=== PATIENT | male | born 1965 | race Caucasian/White ===

== ENCOUNTER → 2017-07-08 | Outpatient (CLI) | payer OTHER ==
--- NOTE | 2017-07-08 10:50 | MR ---
EXAMINATION TYPE: MR shoulder LT wo con DATE OF EXAM: 07/08/2017 COMPARISON: Plain film 06/23/2017 HISTORY: Left shoulder pain TECHNIQUE: Multiplanar, multisequence imaging of the left shoulder is performed without contrast. FINDINGS: Rotator Cuff: Abnormal increased signal is present at the anterior aspect of the rotator cuff inserti on, the tendon is attenuated, fluid is present at the level of the insertion of the rotator cuff on t he humeral head Acromioclavicular Joint: Arthropathy changes present, there is mass effect on the musculotendinous ju nction of supraspinatus, fluid signal present in the subacromial subdeltoid bursa Glenohumeral Joint: Intact Labrum: The labrum appears grossly intact given limitation of non-arthrogram study, suspect there may be a sublabral foramen. Biceps Tendon: The long head of biceps is in normal location within bicipital groove. Some fluid sign al is present along the long head of biceps tendon. Bone marrow signal: Pseudocysts are present within the greater tuberosity. Other: There is a distal acromial spur. IMPRESSION: Findings compatible with partial-thickness tear of the rotator cuff, there is marked attenuation of t he tendon, partial full-thickness tear may be present. Correlate for impingement.
== END | disposition home or self-care (01) ==
LOC: RADMRIMAIN 09:09
PROVIDERS: ATTEND Orthopaedic Surgery
DX: M25.512 Pain in left shoulder (principal)

== ENCOUNTER → 2018-01-30 | Outpatient (CLI) | payer BC ==
[2018-01-30 10:58] LABS: Basophils # (A) 0.1 k/uL (0-0.2); Basophils % (A) 1 %; Eosinophils # (A) 0.2 k/uL (0-0.7); Eosinophils % (A) 2 %; HCT 48.2 % (39.0-53.0); HGB 16.9 gm/dL (13.0-17.5); Lymphocytes # (A) 2.7 k/uL (1.0-4.8); Lymphocytes % (A) 31 %; MCH 29.2 pg (25.0-35.0); MCV 83.5 fL (80.0-100.0); Monocytes # (A) 0.4 k/uL (0-1.0); Monocytes % (A) 5 %; Neutrophils # (A) 5.2 k/uL (1.3-7.7); Neutrophils % (A) 59 %; Platelet Count 307 k/uL (150-450); RBC 5.77 m/uL (4.30-5.90); RDW 13.1 % (11.5-15.5); WBC 8.7 k/uL (3.8-10.6)
[2018-01-30 11:07] LABS: Potassium 4.7 mmol/L (3.5-5.1)
== END ==
LOC: LABPAT 10:17
PROVIDERS: ATTEND Orthopaedic Surgery
DX: Z01.812 Encounter for preprocedural laboratory examination (principal); M75.42 Impingement syndrome of left shoulder
CPT/HCPCS: 36415; 80051; 85025; 93005

== ENCOUNTER 2018-02-17 07:57 | Day surgery (SDC) | payer BC ==
[2018-02-09 14:04] VITALS: BMI 27.8
--- NOTE | 2018-02-16 10:04 | HP ---
HISTORY AND PHYSICAL DATE OF SERVICE: 02/17/2018 Jose Antonio Rangel is a 52-year-old patient seen with progressive left shoulder pain. We discussed treatment options. He elected to proceed with arthroscopy. Consent regarding the procedure was obtained. PAST MEDICAL HISTORY: Hypercholesterolemia and asthma. PAST SURGICAL HISTORY: Right wrist surgery. DAILY MEDICATIONS: 1. Simvastatin. 2. Ventolin inhaler. ALLERGIES: SULFA. SOCIAL HISTORY: Patient denies current tobacco use. PHYSICAL EVALUATION OF LEFT SHOULDER: Flexion 140 degrees, abduction 90 degrees, external rotation is 45 degrees with weakness and pain. Tenderness along the anterior lateral acromion rotator cuff insertion site. Impingement sign positive at 90 degrees. Drop-arm sign is positive. Distal neurovascular exam is intact. LEFT SHOULDER RADIOGRAPHS: Revealed a type 2 anterior acromion, acromioclavicular joint osteoarthritis and cystic changes of the tuberosity. An MRI of left shoulder revealed rotator cuff tendon tear. IMPRESSION: 1. Left shoulder impingement with rotator cuff tear. 2. Left shoulder acromioclavicular joint osteoarthritis. PLAN: Left shoulder arthroscopy with subacromial decompression and probable arthroscopic rotator cuff repair, possible Reyes procedure and debridement. MMODL / IJN: [id number] /
[~2018-02-17 07:57] MED LIST: HYDROmorphone 0.5 MG/0.5 ML SYRINGE IVP PRN; LACTATED RINGERS 1,000 ML IV SCH; MIDAZOLAM 2 MG/2 ML VIAL IV PRN; MORPHINE SULFATE 2 MG/ML SYRINGE IV PRN; ceFAZolin IN SWFI 2 GM/20 ML SYRINGE IVP ONE
[2018-02-17] MEDS ORDERED: fentaNYL (PF) 50 MCG/ML 2 ML AMP ONE ×2 (08:40→10:02)
[2018-02-17] MEDS ORDERED: ePHEDrine SULFATE/0.9% NACL/PF 50 MG/5 ML SYRINGE IV ONE (10:02)
[2018-02-17] MEDS ORDERED: LIDOCAINE 2%-EPI 1:100,000 20 ML VIAL ONE (10:02)
[2018-02-17] MEDS ORDERED: ROPIVACAINE 5 MG/ML 30 ML VIAL ONE (10:02)
[2018-02-17] MEDS ORDERED: SUCCINYLCHOLINE CHLORIDE 100 MG/5 ML SYR IV ONE (10:02)
[2018-02-17] MEDS ORDERED: PROPOFOL 10 MG/ML 20 ML VIAL IV ONE (10:02)
[2018-02-17] MEDS ORDERED: MIDAZOLAM 2 MG/2 ML VIAL ONE (10:02)
[2018-02-17] MEDS ORDERED: ONDANSETRON 4 MG/2 ML VIAL ONE (10:02)
[2018-02-17] MEDS ORDERED: LIDOCAINE 1% INJ 10MG/ML (20 ML MDV) ONE (10:02)
--- NOTE | 2018-02-17 10:23 | P.ONQ ---
Anesthesiology Proc Note - PNB - Peripheral Nerve Block Performed Left Interscalene Single Time Out Performed: Yes Procedure Start Time: 08:55 Indication: Acute Post-Operative Pain, Analgesia Specifically requested for management of pain by DrDimple: Cory Espinosa Sedation Type: Sedate with meaningful contact maintained Preparation: Sterile Prep Position: Supine Catheter: None Needle Types: Other (see comment) (Pajunk) Needle Size: 50mm (2") Needle Gauge: 21 Technique: Ultrasound Injectate: 0.5% Ropivacaine (see comment for volume) (25 cc) Blood Aspirated: No Pain Paresthesia on Injection Noted: No Resistance on Injection: Normal Events: Uneventful and Well Tolerated (Sterile prep gloves and mask. Mosquito bite in general area mandated a more cephalad - caudad approach.)
[2018-02-17] MEDS ORDERED: SODIUM CHLORIDE 0.9% 1,000 ML IV ONE ×3 (11:57)
--- NOTE | 2018-02-17 11:59 | P.OP ---
Date of Procedure: 02/17/18 Preoperative Diagnosis: Left shoulder impingement Postoperative Diagnosis: 1. Left shoulder rotator cuff tear 2. Left shoulder impingement 3. Left shoulder acromioclavicular joint osteoarthritis 4. Left shoulder partial long head biceps tendon tear 5. Left shoulder superficial labral tear Procedure(s) Performed: 1. Left shoulder arthroscopic rotator cuff repair 2. Left shoulder arthroscopic subacromial decompression 3. Left shoulder arthroscopic Reyes procedure 4. Left shoulder arthroscopic biceps tenotomy 5. Left shoulder arthroscopic debridement labral tear Implants: 3-Arthrex swivel lock anchors Anesthesia: GETA, regional (Interscalene block) Surgeon: Cory Espinosa Cost Accounting Manager #1: Franklin Hernandez Estimated Blood Loss (ml): 12 Pathology: none sent Condition: stable Disposition: PACU Indications for Procedure: 52-year-old patient seen with progressive left shoulder pain. After treatment options were discussed, he elected to proceed with arthroscopy. Operative Findings: see description of procedure Description of Procedure: Patient underwent a shoulder block by department of anesthesia. The patient was then taken to the operative suite. The patient underwent a general anesthetic by the department of anesthesia. The patient was placed into a lateral position and secured. There was appropriate padding of the bony prominence. Left shoulder was then prepped and draped in normal sterile orthopedic fashion. We placed the extremity in 10 pounds of longitudinal traction. A posterior incision was now made for a posterior working portal site. The trocar and cannula were inserted into the glenohumeral joint. Arthroscopy was initiated. Spinal needle was now inserted anteriorly, to ascertain the anterior working portal site. An incision was now made in that area, a trocar was inserted followed by a probe. There was superficial tearing noted of the anterior and superior labrum. There was partial tearing and hyperemia long head biceps tendon. The inferior posterior labrum were intact. There were mild grade 1 chondromalacia changes of the humeral head centrally. No loose bodies. I performed an arthroscopic biceps tenotomy. I debrided the labral tears down to stable tissue. The residual labrum was probed and found to be stable. Instruments now removed from glenohumeral joint. Utilizing the posterior working portal site, the trocar and cannula were inserted into the subacromial space. Arthroscopy initiated. I made an incision 2 fingerbreadths lateral to the acromion. I introduced my trocar followed by my ArthroCare ablator. I now began ablating thick subacromial bursal tissue, which exposed the undersurface of the anterior acromion. This was diminished subacromial space. There was a very prominent anterior acromion. A motorized bur was introduced and a subacromial decompression was performed. I also excised some osteophytes off the inferior aspect of the distal clavicle. The AC joint was visualized and noted to be fairly arthritic. Our motorized bur was introduced in the anterior portal site and a Reyes procedure was performed without difficulty, decompressing the AC joint nicely. I turned my attention to the rotator cuff. There was an obvious rotator cuff tear along the anterior distal supraspinatus tear. I debrided the margins getting down to stable tendon tissue. The tear measured approximately 2 cm. I abraded the footprint with a motorized bur. I created an career based intervention coordinator portal site off the lateral acromion. I now introduced 1 the medial row anchor with 3 sutures. I passed all 6 limbs of suture through good bites of rotator cuff tendon. We did note a potential dogears posteriorly introduced 1 suture loop. A second suture loop was added to correct a dogear more anteriorly. I now crisscrossed our sutures and introduced 2 lateral anchors which compressed the tendon on the footprint very nicely. The residual suture limbs were clipped. The repair was stable. I injected 1 mL of Renue intra-articular. Instruments now removed from the portal sites. All portal sites were approximated with nylon suture. Sterile dressings were applied followed by a shoulder immobilizer. 3 Arthrex SwiveLock anchors were utilized as implants. Jeremy STEPHENSON assisted with the procedure. The patient was awakened, transferred to a bed, and taken to recovery in stable condition.
[2018-02-17 12:02] VITALS: TEMP 98
[2018-02-17 14:20] VITALS: BP 132/84; PULSE 78; RESP 18
== END 2018-02-17 14:49 | disposition home or self-care (01) ==
LOC: OR 07:57
PROVIDERS: ATTEND Orthopaedic Surgery
DX: M75.102 Unspecified rotator cuff tear or rupture of left shoulder, not specified as traumatic (principal); M75.42 Impingement syndrome of left shoulder; M19.012 Primary osteoarthritis, left shoulder; S46.112A Strain of muscle, fascia and tendon of long head of biceps, left arm, initial encounter; S43.432A Superior glenoid labrum lesion of left shoulder, initial encounter; X58.XXXA Exposure to other specified factors, initial encounter; M94.212 Chondromalacia, left shoulder; M25.712 Osteophyte, left shoulder; E78.00 Pure hypercholesterolemia, unspecified; J45.909 Unspecified asthma, uncomplicated; E78.5 Hyperlipidemia, unspecified; Z87.891 Personal history of nicotine dependence; Z79.1 Long term (current) use of non-steroidal anti-inflammatories (NSAID); Z79.899 Other long term (current) drug therapy; Z88.2 Allergy status to sulfonamides
CPT/HCPCS: 64415; 29826; 29827; 29824; C1713 ×2; C1765; J2250; J2405; J2001; J3010; J2795; J0330; J2704; J0690

== ENCOUNTER → 2019-01-10 | Outpatient (CLI) | payer BC ==
--- NOTE | 2019-01-11 04:18 | CT ---
EXAMINATION TYPE: CT facial bones wo con DATE OF EXAM: 01/10/2019 COMPARISON: None HISTORY: 53-year-old male chronic sinusitis, Epistaxis x2 years TECHNIQUE: Contiguous axial scanning of the facial bones without IV contrast. Coronal reconstructions performed. CT DLP: 595 mGycm Automated exposure control for dose reduction was used. FINDINGS: Mild lobulated mucosal thickening right maxillary sinus. Scattered trace mucosal thickening within the ethmoid air cells. Sphenoid and frontal sinuses are well pneumatized. There is no air fluid level. No reactive rehan-osteogenesis or bony destruction of the sinus lopez. The osteomeatal complexes are patent. There is leftward nasal septal deviation. Visualized orbits and globes, mastoid air cells, and visualized intracranial structures show no gross abnormality. IMPRESSION: 1. MILD CHRONIC RIGHT MAXILLARY AND BILATERAL ETHMOID SINUS DISEASE. 2. LEFTWARD NASAL SEPTAL DEVIATION.
== END | disposition home or self-care (01) ==
LOC: RADCTMAIN 16:47
PROVIDERS: ATTEND Otolaryngology
DX: J32.2 Chronic ethmoidal sinusitis (principal); J32.0 Chronic maxillary sinusitis; J34.2 Deviated nasal septum; R04.0 Epistaxis
CPT/HCPCS: 70486